=== PATIENT | female | born 1950 | race Caucasian/White ===

== ENCOUNTER 2018-08-26 12:39 | Outpatient (REF) | payer OTHER, SELFPAY | END 2018-08-26 12:59 | LOC: NCHCN 12:39 | PROVIDERS: PCP Family Medicine; Visit Provider Family Medicine | DX: L65.9 Nonscarring hair loss, unspecified (principal) | CPT/HCPCS: 84443 ==

== ENCOUNTER 2018-09-16 00:56 | Outpatient (CLI) | payer OTHER, SELFPAY ==
--- NOTE | 2018-09-16 10:24 | DI.MAMMO_ITS ---
SYMPTOMS/DIAGNOSIS: SCREENING, Z12.31 MAMMOGRAM: Mammograms were interpreted according to the usual protocol including computer analysis with CAD system, tomosynthesis and C view imaging. Comparison is made with exams from 2013 through 2017. The breasts are composed of scattered fibroglandular densities, breast density Category B. No suspicious masses or suspicious microcalcifications are seen. There has been no significant change. IMPRESSION: Category I B, negative mammogram. Yearly screening mammography is recommended. [facility] ASSESSMENT OF FINDINGS: Negative. Category 1. Patient will receive a letter notifying them of these results. BI-RADS category B. There are scattered areas of fibroglandular density.
== END 2018-09-16 01:16 ==
PROVIDERS: PCP Family Medicine; Visit Provider Family Medicine
DX: Z12.31 Encounter for screening mammogram for malignant neoplasm of breast (principal)
CPT/HCPCS: 77063; 77067

== ENCOUNTER 2019-12-18 10:41 | Outpatient (CLI) | payer OTHER, SELFPAY ==
[2019-12-19 18:53] LABS: COVID-19 RT-PCR UVMMC Result Negative (Negative)
== END 2019-12-18 11:01 ==
PROVIDERS: PCP Family Medicine; Visit Provider Family Medicine
DX: Z11.59 Encounter for screening for other viral diseases (principal)
CPT/HCPCS: U0003

== ENCOUNTER 2020-04-23 09:53 | Outpatient (REF) | payer OTHER, SELFPAY ==
[2020-04-23 19:33] LABS: HCT 42.5 % (36.0-46.0); HGB 14.6 g/dL (11.2-15.7); MCH 29.7 pg (27.0-33.0); MCHC 34.4 % (32.0-36.0); MCV 86.6 fL (80-95); Platelet Count 345 10^3/uL (130-400); RBC 4.91 10^6/uL (3.93-5.22); RDW 12.4 % (11.7-14.6); RDW-SD 39.1 fL; WBC 8.64 10^3/uL (4.4-10.8)
[2020-04-23 20:05] LABS: ALT 26 U/L (14-59); AST 21 U/L (15-37); Alkaline Phosphatase 101 U/L (46-116); Anion Gap 8.8 mmol/L (3-11); BUN 17 mg/dL (7-18); Bilirubin, Total 0.4 mg/dL (0.2-1.0); CO2 28.2 mmol/L (21.0-32.0); CREATININE 0.86 mg/dL (0.55-1.02); Calcium 9.6 mg/dL (8.5-10.1); Calculated LDL 151 mg/dL (<100); Chloride 97 mmol/L (98-107); Cholesterol 243 mg/dL (<200); Glucose 102 mg/dL (74-106); HDL Cholesterol 45 mg/dL (40-60); Potassium 3.8 mmol/L (3.5-5.1); Sodium 134 mmol/L (136-145); Total Protein 7.3 g/dL (6.4-8.2); Triglyceride 235 mg/dL (<150)
[2020-04-23 20:42] LABS: Hemoglobin A1C 5.8 % (<5.7)
== END 2020-04-23 10:13 ==
LOC: NCHCN 09:53
PROVIDERS: PCP Family Medicine; Visit Provider Family Medicine
DX: R73.03 Prediabetes (principal); E78.5 Hyperlipidemia, unspecified; I10 Essential (primary) hypertension
CPT/HCPCS: 80053; 80061; 85027; 83036

== ENCOUNTER 2020-06-09 02:44 | Outpatient (CLI) | payer OTHER, SELFPAY ==
--- NOTE | 2020-06-09 | DI.DEXA_ITS ---
EXAM: XR DEXA BONE DENSITY W/WO LILLY CLINICAL HISTORY: SCREENING FOR OSTEOPOROSIS IN POSTMENOPAUSAL WOMAN,Z78.0 TECHNIQUE: COMPARISON: CR LUMBAR SPINE COMPLETE from 08/17/2014 FINDINGS: DEXA scan was performed according to the usual protocol. Please see the accompanying data sheets. Findings for left hip scanning are T-score -0.9 with left femoral neck T-score -1.6. Findings for lumbar spine scanning are T-score -1.8. Findings for right forearm scanning are T-score -1.0. IMPRESSION: Findings consistent with osteopenia according to the WHO criteria. Please note that the lateral vert ebral scanogram shows no evidence of a vertebral compression fracture. RADIATION DOSE DELIVERED: Total DLP
== END 2020-06-09 03:04 ==
PROVIDERS: PCP Family Medicine; Visit Provider Family Medicine
DX: Z78.0 Asymptomatic menopausal state (principal); M85.89 Other specified disorders of bone density and structure, multiple sites
CPT/HCPCS: 77080

== ENCOUNTER 2020-11-16 02:09 | Outpatient (CLI) | payer MEDICARE, SELFPAY ==
--- NOTE | 2020-11-16 11:16 | DI.MAMMO_ITS ---
EXAM: MAMMO SCREENING CLINICAL HISTORY: SCREENING,Z12.31 TECHNIQUE: Mammograms were interpreted according to the usual protocol including computer analysis w [employer] CAD system, tomosynthesis and C-view imaging. COMPARISON: FINDINGS: The breasts are of moderate density with fairly symmetrical distribution of fibroglandular tissue. N o dominant mass is identified in either breast. The current examination is compared with previous ex aminations including September 2018 and there has been no gross interval change in appearance in tone rison with the prior studies. IMPRESSION: No specific evidence of malignancy at this time. Routine screening examinations are suggested at ye eduardo intervals in this age group according to the ACS ACR guidelines. BI-RADS Category 1 - Negative Breast Density - Category B - Scattered areas of fibroglandular density
== END 2020-11-16 02:29 ==
PROVIDERS: PCP Family Medicine; Visit Provider Family Medicine
DX: Z12.31 Encounter for screening mammogram for malignant neoplasm of breast (principal)
CPT/HCPCS: 77063; 77067

== ENCOUNTER → 2021-12-28 01:36 | Outpatient (CLI) | payer MEDICARE, SELFPAY ==
--- NOTE | 2021-12-28 12:55 | DI.MRI_ITS ---
Exam(s) MR LUMBAR SPINE WO EXAM: MR LUMBAR SPINE WO CLINICAL HISTORY: LOW BACK PAIN, CHRONIC, M54.5. TECHNIQUE: Multiplanar multisequence MRI of the Lumbar spine was performed. COMPARISON: CR LUMBAR SPINE COMPLETE from 08/17/2014 CR XR DEXA BONE DENSITY W/WO LILLY from 06/09/2020 FINDINGS: Plain films of 08/17/2014 were reviewed Conus medullaris is at normal level. There is no evidence of conus mass nor subjacent clumping of in trathecal nerve roots to suggest arachnoiditis. The distal thecal sac appears unremarkable.There are few tiny Tarlov intra sacral cysts at the S2-3 level. Bones:There are no fractures nor ominous osseous lesions in the lumbar vertebral bodies and visualize d sacrum. There are Modic type 1 sub endplate marrow edema changes on the anterosuperior aspect of L 2 vertebral body. With respect to the individual levels... T12-L1: Unremarkable L1-2: Normal disc height and signal. There is anterior osseous lipping evident at this level as well as some Modic type 1 sub endplate marrow edema on the anterior 0 superior aspect of L2 vertebral body . No erosions seen at this level. Posteriorly there is no evidence of loss of the normal posterior concave configuration of the disc. No disc herniation or spinal canal stenosis nor foraminal stenosi s at this level and there is no significant facet arthropathy.No foraminal stenosis L2-3: There is mild-moderate disc height loss at this level, there is no disc herniation nor central canal stenosis. No significant foraminal stenosis. No facet arthropathy. L3-4: Mild disc height loss. There is a small right-sided disc bulge in the floor of the exiting rig ht neural foramen. This does not contact the exiting nerve root at this level. There is no central canal stenosis no prominent foraminal stenosis at this level.No significant facet arthropathy nor lig amentum flavum hypertrophy. L4-5: There is advanced disc space narrowing on the right side of this disc space, with relative pres ervation of disc height on the left side of the disc space at this level. Lateral right osteophytes are noted. No osteophytes on the left side. Posteriorly there is no evidence of disc herniation or central canal stenosis. Exiting left neural foramen is nicely patent. There is mild vertical forami nal stenosis on the right side due to the disc height loss on this side, but this narrowing is mild a nd does not appear to be compressing the exiting nerve root. L5-S1: This level exhibits disc height loss on the left side, more so than the right side. There is mild annular bulging without a prominent disc herniation and there is no central canal stenosis. Exi ting right neural foramen is widely patent. There is mild vertical foraminal stenosis on the opposit e-left side due to the disc height loss at this level and mild posterior bony ridging in the floor of the exiting neural foramen. There are mild-moderate degenerative changes in the left facet joint at this level. Right facet joint appears unremarkable. Soft tissues: paraspinal soft tissues appear unremarkable. IMPRESSION: 1. There is no prominent disc herniation or central canal stenosis. However, there is mild multileve l asymmetric foraminal stenosis at L4-5 and L5-S1 levels, as described above. 2. Minimal facet joint degenerative changes. No prominent facet arthropathy. There is moderate dege nerative change in the left facet joint at L5-S1 level. Other facet joints appear unremarkable. The re is also no evidence of significant ligamentum flavum hypertrophy. 3. DATA REPOSITORY:
== END ==
PROVIDERS: PCP Family Medicine; Visit Provider Family Medicine
DX: M48.07 Spinal stenosis, lumbosacral region (principal); M47.817 Spondylosis without myelopathy or radiculopathy, lumbosacral region
CPT/HCPCS: 72148

== ENCOUNTER → 2022-01-05 02:35 | Outpatient (CLI) | payer MEDICARE, SELFPAY ==
--- NOTE | 2022-01-05 14:00 | DI.CT_ITS ---
Exam(s) CT CHEST WO EXAM: CT CHEST WO CLINICAL HISTORY: COPD, J44.9. TECHNIQUE: Imaging protocol: Axial computed tomography images were obtained and coronal and sagittal reformatted images were created and reviewed. COMPARISON: CR CHEST 2 VIEWS PA,LAT from 01/08/2014 FINDINGS: The examination is limited due to patient motion artifact. Tracheobronchial tree: Patent where visualized. Pulmonary parenchyma: No consolidation or dominant measurable mass. Wanx-mi-iydkapxs centrilobular em physema is present. Mediastinum and Sailaja: No dominant adenopathy or fluid collection. The esophagus is unremarkable. Thyroid gland: Unremarkable. Pleura: No effusion or pneumothorax. Heart: The heart is not dilated. Mild coronary artery calcification. No pericardial effusion. Aorta: Thoracic aorta non-dilated. Atherosclerosis is present. Upper abdomen: Status post cholecystectomy. Lymph nodes: Within normal limits. Soft tissues: Unremarkable. Bones:Within normal limits for the patient's age. IMPRESSION: Umvq-xt-vbjfjvpi centrilobular emphysema. RADIATION DOSE DELIVERED: 580.09mGy.cm Total DLP 580.09mGy.cm Total DLP DATA REPOSITORY: All CT scans at this facility are submitted to the National Radiology Data Registry (NRDR) Dose Index Registry (DIR) with the [employer] (ACR). RADIATION OPTIMIZATION: All CT scans at this facility use at least one of these dose optimization te chniques: automated exposure control; mA and/or kV adjustment per patient size (includes targeted exa ms where dose is matched to clinical indication); or iterative reconstruction.
== END ==
PROVIDERS: PCP Family Medicine; Visit Provider Family Medicine
DX: J44.9 Chronic obstructive pulmonary disease, unspecified (principal)
CPT/HCPCS: 71250

== ENCOUNTER 2022-06-12 15:09 | Outpatient (REF) | payer MEDICARE, SELFPAY ==
[2022-06-12 20:02] LABS: Anion Gap 8.4 mmol/L (3-11); BUN 11 mg/dL (7-18); CO2 27.6 mmol/L (21.0-32.0); CREATININE 0.8 mg/dL (0.55-1.02); Calcium 9.2 mg/dL (8.5-10.1); Chloride 99 mmol/L (98-107); Estimated GFR 79.22 (mL/min/1.73m2); Glucose 100 mg/dL (74-106); Potassium 3.5 mmol/L (3.5-5.1); Sodium 135 mmol/L (136-145)
== END 2022-06-12 15:10 | disposition home or self-care (01) ==
LOC: NCHCN 15:09
PROVIDERS: PCP Family Medicine; Visit Provider Internal Medicine
DX: I10 Essential (primary) hypertension (principal)
CPT/HCPCS: 80048

== ENCOUNTER 2022-09-30 11:34 | Outpatient (CLI) | payer MEDICARE, SELFPAY ==
--- NOTE | 2022-09-30 12:00 | DI.RAD_ITS ---
Exam(s) XR CHEST 2V PA LATERAL EXAM: XR CHEST 2V PA LATERAL CLINICAL HISTORY: evaluate pathology TECHNIQUE: 2D digital imaging was performed. COMPARISON: CR CHEST 2 VIEWS PA,LAT from 01/08/2014 CR XR DEXA BONE DENSITY W/WO LILLY from 06/09/2020 FINDINGS: HEART: Normal size. Aorta: Not dilated. PULMONARY VASCULATURE: Normal. LUNGS: Mild emphysematous and fibrotic changes. No focal infiltrates or pulmonary edema. PLEURAL SPACE: No pleural effusion or pneumothorax. BONE:Unremarkable for age. IMPRESSION: No acute abnormality. DATA REPOSITORY: RADIATION DOSE DELIVERED:
--- NOTE | 2022-09-30 12:17 | DI.VRAD_ITS ---
PROCEDURE INFORMATION: Exam: XR Chest Exam date and time: 09/30/2022 12:09 PM Age: 72 years old Clinical indication: Shortness of breath; Additional info: [place] pathology TECHNIQUE: Imaging protocol: Radiologic exam of the chest. Views: 2 views. COMPARISON: CT CHEST WO 01/05/2022 1:53 PM FINDINGS: Lungs: Unremarkable. No consolidation. Pleural spaces: Unremarkable. No pleural effusion. No pneumothorax. Heart/Mediastinum: Unremarkable. No cardiomegaly. Bones/joints: Unremarkable. IMPRESSION: No acute findings. Dictated and Authenticated by: Fidel Dash MD. Ordering:THAD Weathers MD
== END 2022-09-30 11:54 ==
PROVIDERS: PCP Family Medicine; Visit Provider Nurse Practitioner Family
DX: J44.9 Chronic obstructive pulmonary disease, unspecified (principal); R06.02 Shortness of breath
CPT/HCPCS: 71046

== ENCOUNTER 2023-01-11 02:27 | Outpatient (CLI) | payer MEDICARE, SELFPAY ==
--- NOTE | 2023-01-11 10:45 | DI.MAMMO_ITS ---
Exam(s) MAMMO SCREENING EXAM: MAMMO SCREENING CLINICAL HISTORY: screening. TECHNIQUE: Bilateral full field digital CC and MLO mammographic images were obtained with 3D tomosyn thesis and utilizing computer aided detection (CAD). COMPARISON: Prior mammograms were reviewed. FINDINGS: There has been no significant change in the appearance and distribution of the fibroglandular tissue. Asymmetric tissue in the right breast is unchanged from prior studies. There are no new spiculated masses nor malignant appearing microcalcification groups. There is no significant architectural distortion nor skin thickening-retraction. IMPRESSION: No radiographic evidence of malignancy. BI-RADS Category 1 - Negative Breast Density - Category B - Scattered areas of fibroglandular density Breast density Category C or D implies that the patient has dense breast tissue. Dense breast tissue can make it harder to find cancer on a mammogram. Dense breast tissue is also associated with an incr eased risk of breast cancer. This information about the result of the mammogram report was provided to the patient to raise their awareness. Use this report when you speak with the patient about their risks for breast cancer, which includes their family history. At that time, you may recommend additional screening tests (Ultrasoun d or MRI) as these tests may add significant information. A negative radiographic report should not delay biopsy if a dominant or clinically suspicious mass is present. Up to ten percent of cancers are not identified on mammography. A negative report may reinforce clinical impression. Adenosis and dense breasts may obscure an underlying neoplasm. False positive reports average 6 to 10%. Patient will receive a letter notifying them of these results.
== END 2023-01-11 02:47 ==
LOC: DI 02:27
PROVIDERS: PCP Family Medicine; Visit Provider Obstetrics & Gynecology
DX: Z12.31 Encounter for screening mammogram for malignant neoplasm of breast (principal)
CPT/HCPCS: 77063; 77067

== ENCOUNTER → 2023-04-11 01:11 | Outpatient (CLI) | payer MEDICARE, SELFPAY ==
--- NOTE | 2023-04-11 07:15 | DI.RAD_ITS ---
Exam(s) RF BARIUM SWALLOW EXAM: RF BARIUM SWALLOW CLINICAL HISTORY: CP level dysphagia, PHARYNGOESOPHAGEAL DYSPHAGIA, GLOBUS TECHNIQUE: 2D and realtime digital imaging was performed. CONTRAST MATERIAL: Thick and thin barium and barium tablet were administered. After Avastin crystal s and barium tablet also administered. COMPARISON: CR,XR XR CHEST 2V PA LATERAL from 09/30/2022 FINDINGS: The PA and lateral chest films show normal heart size and clear lung brewer. The lateral manager android view of the neck is unremarkable. Esophagus: The patient swallowed barium without difficulty. Noevidence for mucosal erosions. Nofold thickening. No mass is visible. Slight narrowing at GE junction. The barium tablet stuck briefly at this location. Motility: There is a normal primary stripping wave. Mild tertiary contractions were noted. There is a tiny sliding hiatal hernia. Nogastroesophageal reflux was observed during the exam. IMPRESSION: Tiny sliding hiatal hernia. Slight narrowing at GE junction. RADIATION DOSE DELIVERED: Gopir=12.4 mGy
[2023-04-11] MEDS: Barium Sulfate 700 MG TAB PO (09:19)
[2023-04-11] MEDS: Barium Sulfate 98% W/W 140 ML BTL PO (09:20)
[2023-04-11] MEDS: Barium Sulfate 60% W/V 355 ML BTL PO (09:20)
[2023-04-11] MEDS: Simethicone/Sod Bicarb/Cit Ac, 4 gram PACKET 1 PACKET PO (09:22)
== END ==
PROVIDERS: PCP Family Medicine; Visit Provider Otolaryngology
DX: K44.9 Diaphragmatic hernia without obstruction or gangrene; R13.14 Dysphagia, pharyngoesophageal phase
CPT/HCPCS: 74221; J3490

== ENCOUNTER 2023-09-11 02:36 | Outpatient (CLI) | payer MEDICARE, SELFPAY ==
[2023-09-11 12:40] LABS: Anion Gap 10.9 mmol/L (3-11); BUN 7 mg/dL (7-18); CO2 27.1 mmol/L (21.0-32.0); CREATININE 0.8 mg/dL (0.55-1.02); Calcium 9.6 mg/dL (8.5-10.1); Chloride 97 mmol/L (98-107); Estimated GFR 78.24 (mL/min/1.73m2); Glucose 112 mg/dL (74-106); Potassium 3.4 mmol/L (3.5-5.1); Sodium 135 mmol/L (136-145); TSH (W/Ref FT4) 1.86 uIU/mL (0.36-3.74)
[2023-09-11 12:52] LABS: Hemoglobin A1C 5.9 % (<5.7)
== END 2023-09-11 02:37 | disposition home or self-care (01) ==
LOC: LOS 02:36
PROVIDERS: PCP Family Medicine; Visit Provider Family Medicine
DX: E03.9 Hypothyroidism, unspecified (principal); E11.51 Type 2 diabetes mellitus with diabetic peripheral angiopathy without gangrene; E87.1 Hypo-osmolality and hyponatremia
CPT/HCPCS: 36415; 80048; 83036; 84443

== ENCOUNTER → 2023-09-25 14:56 | Outpatient (CLI) | payer MEDICARE, SELFPAY ==
--- NOTE | 2023-09-25 14:15 | DI.RAD_ITS ---
Exam(s) XR CHEST 2V PA LATERAL EXAM: XR CHEST 2V PA LATERAL CLINICAL HISTORY: evaluate pathology,chronic cough, r05.3 TECHNIQUE: 2D digital imaging was performed of the chest. Two images were obtained. PA and lateral views were obtained. COMPARISON: CT CT CHEST WO from 01/05/2022 CR,XR XR CHEST 2V PA LATERAL from 09/30/2022 CR,RF RF BARIUM SWALLOW from 04/11/2023 FINDINGS: MEDIASTINUM: Normal. HEART: Normal. PULMONARY VASCULATURE: Normal. LUNGS: There are diffuse interstitial infiltrates seen in the lungs which have progressed since the p rior examination. No focal consolidating infiltrate is seen. PLEURAL SPACE: No pleural effusion or pneumothorax. BONE:Within normal limits for the patient's age. OTHER FINDINGS:Normal. IMPRESSION: Diffuse interstitial disease. Differential considerations include acute interstitial pneumonia or ed rodrick. Chronic interstitial fibrosis should also be considered. A 1 month follow-up examination to as sess for improvement is recommended. If the findings persist in this patient, a high-resolution CT s can in addition to the routine noncontrast CT scan is recommended. DATA REPOSITORY: RADIATION DOSE DELIVERED:
== END ==
PROVIDERS: PCP Family Medicine; Visit Provider Nurse Practitioner Family
DX: J84.9 Interstitial pulmonary disease, unspecified
CPT/HCPCS: 71046

== ENCOUNTER 2023-09-26 10:31 | Outpatient (CLI) | payer MEDICARE, SELFPAY ==
[2023-09-26 12:23] LABS: Abs Immature Grans 0.05 10^3/uL (0.0-0.06); Absolute Basophil Count 0.04 10^3/uL (0.0-0.2); Absolute Eosinophil Count 0.01 10^3/uL (0.0-0.7); Absolute Lymphocyte Count 0.83 10^3/uL (1.2-3.4); Absolute Monocyte Count 0.13 10^3/uL (0.1-0.8); Absolute Neutrophil Count 7.11 10^3/uL (1.2-6.7); Basophils % 0.5; Eosinophils % 0.1; HCT 41.6 % (36.0-46.0); HGB 13.9 g/dL (11.2-15.7); Immature Grans % 0.6; Lymphocytes % 10.2; MCH 27.4 pg (27.0-33.0); MCHC 33.4 % (32.0-36.0); MCV 82 fL (80-95); MPV 8.8 fL (8.0-11.0); Monocytes % 1.6; Platelet Count 472 10^3/uL (130-400); RBC 5.08 10^6/uL (3.93-5.22); RDW 12.7 % (11.7-14.6); WBC 8.17 10^3/uL (4.4-10.8)
[2023-09-26 12:46] LABS: NT-proBNP 174 pg/mL (<300)
== END 2023-09-26 10:32 | disposition home or self-care (01) ==
LOC: LOS 10:32
PROVIDERS: Nurse Practitioner Family; PCP Family Medicine; Visit Provider Family Medicine
DX: J44.9 Chronic obstructive pulmonary disease, unspecified (principal); I50.9 Heart failure, unspecified
CPT/HCPCS: 36415; 83880; 85025

== ENCOUNTER → 2023-10-09 02:54 | Outpatient (CLI) | payer MEDICARE, SELFPAY ==
--- NOTE | 2023-10-09 15:00 | DI.CT_ITS ---
Exam(s) CT CHEST WO EXAM: CT CHEST WO CLINICAL HISTORY: interstitial changes seen on CXR,chronic obstructive lung disease,j44.9 TECHNIQUE: Imaging Protocol: Axial computed tomography images with coronal and sagittal reformatted images were created and reviewed CONTRAST MATERIAL: Noncontrast COMPARISON: CT CT CHEST WO from 01/05/2022 CR,RF RF BARIUM SWALLOW from 04/11/2023 CR XR CHEST 2V PA LATERAL from 09/25/2023 FINDINGS: Exam mildly limited by motion. Pulmonary parenchyma: Mild emphysematous changes at the apices. Mildly increased interstitial change s greater in the upper lobes. Arm some peribronchial thickening and peribronchial infiltrates greate r in the upper lobes. No consolidation. No dominant measurable mass. Tracheobronchial tree: No bronchiectasis or mucous plugging. Mediastinum and Sailaja: No dominant adenopathy or fluid collection. Pleura: No effusion. No pneumothorax. Heart: The heart is not dilated. Mild coronary artery calcifications are seen. Aorta: Thoracic aorta non-dilated. Mild to moderate atherosclerotic changes. Upper abdomen: No acute findings.. Status post cholecystectomy. Bones: Degenerative changes in the spine. Soft tissues: Unremarkable. IMPRESSION: Bilateral infiltrates superimposed on mild emphysematous and fibrotic changes. RADIATION DOSE DELIVERED: 532.06mGy.cm Total DLP DATA REPOSITORY: All CT scans at this facility are submitted to the National Radiology Data Registry (NRDR) Dose Index Registry (DIR) with the [employer] (ACR). RADIATION OPTIMIZATION: All CT scans at this facility use at least one of these dose optimization te chniques: automated exposure control; mA and/or kV adjustment per patient size (includes targeted exa ms where dose is matched to clinical indication); or iterative reconstruction.
== END ==
PROVIDERS: PCP Family Medicine; Visit Provider Family Medicine
DX: J44.9 Chronic obstructive pulmonary disease, unspecified (principal); J98.4 Other disorders of lung; J43.8 Other emphysema
CPT/HCPCS: 71250

== ENCOUNTER 2023-10-18 09:16 | Outpatient (CLI) | payer MEDICARE, SELFPAY ==
[2023-10-18] MEDS: Levalbuterol HFA 15 GM INH 4 PUFF IH (15:50)
[2023-10-18] MEDS: Inhaler, Assist Device 1 EACH MC (15:51)
--- NOTE | 2023-10-19 12:39 | W.PFT ---
Date of service: 10/18/23 Time of Service: 14:38 Pulmonary Function Test Result Indications: COPD Interpretation Spirometry: There is no airflow limitation. There is no bronchodilator response. Lung Volumes: Normal lung volumes Diffusion Capacity: Decreased diffusion Airway Pressure: Increased airways resistance Impression Isolated decreased diffusion. This could represent emphysema, ILD or pulmonary vascular disease. Clinical Correlation therefore is recommended.
== END 2023-10-18 09:17 | disposition home or self-care (01) ==
LOC: RT 09:16
PROVIDERS: PCP Family Medicine; Visit Provider Family Medicine
DX: J44.9 Chronic obstructive pulmonary disease, unspecified (principal)
CPT/HCPCS: 94060; 94726; 94729

== ENCOUNTER → 2023-10-31 09:27 | Outpatient (BNVA) | payer MEDICARE, SELFPAY | PROVIDERS: PCP Family Medicine; Referring Provider Family Medicine; Visit Provider Physician Assistant Surgical | DX: R05.9 Cough, unspecified (principal); J44.9 Chronic obstructive pulmonary disease, unspecified; J84.9 Interstitial pulmonary disease, unspecified; F17.200 Nicotine dependence, unspecified, uncomplicated | CPT/HCPCS: 36415; 99205 ==

== ENCOUNTER 2023-10-31 11:04 | Outpatient (REF) | payer MEDICARE, SELFPAY ==
[2023-10-31 12:42] LABS: Abs Immature Grans 0.03 10^3/uL (0.0-0.06); Absolute Basophil Count 0.04 10^3/uL (0.0-0.2); Absolute Eosinophil Count 0.03 10^3/uL (0.0-0.7); Absolute Lymphocyte Count 1.83 10^3/uL (1.2-3.4); Absolute Monocyte Count 0.67 10^3/uL (0.1-0.8); Absolute Neutrophil Count 5.66 10^3/uL (1.2-6.7); Basophils % 0.5; Eosinophils % 0.4; HCT 43.1 % (36.0-46.0); HGB 14.4 g/dL (11.2-15.7); Immature Grans % 0.4; Lymphocytes % 22.2; MCH 27.9 pg (27.0-33.0); MCHC 33.4 % (32.0-36.0); MCV 83 fL (80-95); MPV 9.4 fL (8.0-11.0); Monocytes % 8.1; Neutrophils % 68.4; Platelet Count 412 10^3/uL (130-400); RBC 5.17 10^6/uL (3.93-5.22); RDW 13.7 % (11.7-14.6); WBC 8.26 10^3/uL (4.4-10.8)
[2023-10-31 23:39] LABS: IgE 4 IU/mL (<158)
[2023-11-07 08:56] LABS: Alter tenuis/alternata IgG <2.0 mcg/mL (<12.0); Aureobasidium pullulans IgG 2.1 mcg/mL (<18.0); Laceyella sacchari IgG 28.8 mcg/mL (<25.0); Micropolyspora faeni IgG <2.0 mcg/mL (<5.0); Penicillium Chrysogenum IgG 42.6 mcg/mL (<22.0); Phoma betae IgG 4.1 mcg/mL (<8.0)
== END 2023-10-31 11:05 | disposition home or self-care (01) ==
LOC: LBN 11:04
PROVIDERS: PCP Family Medicine; Visit Provider Physician Assistant Surgical
DX: J84.9 Interstitial pulmonary disease, unspecified
CPT/HCPCS: 86001; 87305; 82785; 85025

== ENCOUNTER → 2023-11-30 08:42 | Outpatient (BNVA) | payer MEDICARE, SELFPAY | PROVIDERS: PCP Family Medicine; Referring Provider Family Medicine; Visit Provider Student in an Organized Health Care Education/Training Program | DX: J43.9 Emphysema, unspecified (principal); J67.9 Hypersensitivity pneumonitis due to unspecified organic dust; K21.9 Gastro-esophageal reflux disease without esophagitis; F17.200 Nicotine dependence, unspecified, uncomplicated | CPT/HCPCS: 99214 ==

== ENCOUNTER → 2024-02-07 00:44 | Outpatient (CLI) | payer MEDICARE, SELFPAY ==
--- NOTE | 2024-02-07 15:09 | DI.CT_ITS ---
Exam(s) CT CHEST WO EXAM: CT CHEST WO CLINICAL HISTORY: assess resolution/stability,MULTIPLE PULMONARY NODULES,HYPERSENSITIVITY. TECHNIQUE: Imaging protocol: Axial computed tomography images were obtained and coronal and sagittal reformatted images were created and reviewed. COMPARISON: CT CT CHEST WO from 01/05/[address] CHEST WO from 10/09/2023 FINDINGS: The examination is limited due to patient motion artifact. Tracheobronchial tree: Patent where visualized. Pulmonary parenchyma: Moderate centrilobular emphysematous changes are present. No focal consolidati on is seen. No pulmonary nodules are present. There is persistent mild interstitial thickening pred ominantly in the lung apices which appears stable. Mediastinum and Sailaja: No dominant adenopathy or fluid collection. The esophagus is unremarkable. Thyroid gland: Unremarkable. Pleura: No effusion or pneumothorax. Heart: The heart is not dilated. Coronary artery calcifications are present. No pericardial effusion . Aorta: Thoracic aorta non-dilated. Atherosclerotic calcification is present. Upper abdomen: Unremarkable. Lymph nodes: Within normal limits. Soft tissues: Unremarkable. Bones:Within normal limits for the patient's age. IMPRESSION: 1. No new infiltrates are seen in the lungs. 2. Moderate centrilobular emphysema. Stable predominantly upper lobe interstitial thickening. RADIATION DOSE DELIVERED: 494.63mGy.cm Total DLP 494.63mGy.cm Total DLP DATA REPOSITORY: All CT scans at this facility are submitted to the National Radiology Data Registry (NRDR) Dose Index Registry (DIR) with the [employer] (ACR). RADIATION OPTIMIZATION: All CT scans at this facility use at least one of these dose optimization te chniques: automated exposure control; mA and/or kV adjustment per patient size (includes targeted exa ms where dose is matched to clinical indication); or iterative reconstruction.
== END ==
PROVIDERS: PCP Family Medicine; Visit Provider Student in an Organized Health Care Education/Training Program
DX: R91.8 Other nonspecific abnormal finding of lung field (principal); J67.9 Hypersensitivity pneumonitis due to unspecified organic dust
CPT/HCPCS: 71250

== ENCOUNTER → 2024-02-11 09:18 | Outpatient (BNVA) | payer MEDICARE, SELFPAY | PROVIDERS: PCP Family Medicine; Referring Provider Family Medicine; Visit Provider Physician Assistant Surgical | DX: J43.9 Emphysema, unspecified (principal); K21.9 Gastro-esophageal reflux disease without esophagitis; F17.200 Nicotine dependence, unspecified, uncomplicated; J67.9 Hypersensitivity pneumonitis due to unspecified organic dust | CPT/HCPCS: 99214 ==

== ENCOUNTER 2024-02-27 03:58 | Outpatient (CLI) | payer MEDICARE, SELFPAY ==
[2024-02-27 12:36] LABS: Hemoglobin A1C 6.3 % (<5.7)
[2024-02-27 12:37] LABS: BUN 14 mg/dL (7-18); CREATININE 0.9 mg/dL (0.55-1.02); Calcium 9.3 mg/dL (8.5-10.1); Chloride 99 mmol/L (98-107); Estimated GFR 67.92 (mL/min/1.73m2); Glucose 101 mg/dL (74-106); NT-proBNP 100 pg/mL (<300); Potassium 3.6 mmol/L (3.5-5.1); Sodium 133 mmol/L (136-145)
== END 2024-02-27 03:59 | disposition home or self-care (01) ==
LOC: LOS 03:58
PROVIDERS: PCP Family Medicine; Visit Provider Family Medicine
DX: R06.09 Other forms of dyspnea (principal); E11.51 Type 2 diabetes mellitus with diabetic peripheral angiopathy without gangrene; I70.209 Unspecified atherosclerosis of native arteries of extremities, unspecified extremity; E87.1 Hypo-osmolality and hyponatremia
CPT/HCPCS: 36415; 80048; 83036; 83880

== ENCOUNTER 2024-04-01 01:32 | Outpatient (CLI) | payer MEDICARE, SELFPAY ==
--- NOTE | 2024-04-01 07:45 | DI.RAD_ITS ---
Exam(s) XR LUMBAR SPINE COMPLETE EXAM: XR LUMBAR SPINE COMPLETE CLINICAL HISTORY: rt low back pain,m54.9. TECHNIQUE: 2D digital imaging was performed of the lumbar spine. Five images were obtained. AP, la teral, right oblique, left oblique and L5-S1 spot views were obtained. COMPARISON: CR LUMBAR SPINE COMPLETE from 08/17/2014 CR XR DEXA BONE DENSITY W/WO LILLY from 06/09/2020 FINDINGS: BONES: No fracture or destructive lesion. There are endplate osteophytes throughout the lumbar spine. There are degenerative changes seen at the facets at L4-5 and L5-S1. DISKS: There is disc space narrowing in the lumbar spine particularly at L4-5 and L5-S1. ALIGNMENT: Lumbar spinal alignment is within normal limits. No spondylolysis or spondylolisthesis. SOFT TISSUE: There are surgical clips again seen in the right upper quadrant. This may reflect prior cholecystectomy. Atherosclerotic calcification is seen of the abdominal aorta. IMPRESSION: Vdfu-by-tkwsnapa degenerative changes seen in the lumbar spine. DATA REPOSITORY: RADIATION DOSE DELIVERED:
--- NOTE | 2024-04-01 14:08 | DI.RAD_ITS ---
Exam(s) XR HIP RT COMPLETE AP PELVIS EXAM: XR HIP RT COMPLETE AP PELVIS CLINICAL HISTORY: rt groin pain, rt hip pain,m25.551. TECHNIQUE: 2D digital imaging was performed of the right hip. Three images were obtained. AP pelvis and lateral right hip views were obtained. COMPARISON: CR RT HIP COMPLETE AP PELVIS from 05/15/2017 FINDINGS: BONES: No acute fracture is present. No bony destructive lesion is seen. JOINTS: No dislocation present. There is moderate narrowing of the left hip joint and mild narrowing of the right hip joint. Mild degenerative changes are seen in the lower lumbar spine in the sacroili ac joints. The symphysis pubis is unremarkable. SOFT TISSUE: Normal. IMPRESSION: Mild joint space narrowing of the hips bilaterally, left greater than right. DATA REPOSITORY: RADIATION DOSE DELIVERED:
== END 2024-04-01 01:52 ==
LOC: DI 01:32
PROVIDERS: PCP Family Medicine; Visit Provider Family Medicine
DX: M25.551 Pain in right hip (principal); M54.9 Dorsalgia, unspecified
CPT/HCPCS: 72110; 73502

== ENCOUNTER 2024-04-17 02:21 | Outpatient (CLI) | payer MEDICARE, SELFPAY ==
--- NOTE | 2024-04-17 07:00 | DI.NM_ITS ---
APPROVED REPORT Exam: Pharmacologic Patient Location: Out-Patient Room/Bed: Stress Nurse: Samia Yan RN and Glynn Zamora RN Ordering Provider:KRISTINE ACE, Contact Number: [phone] BMI: 32.11 Baseline Rhythm: Sinus Rhythm. Indications: Chest Pain. Medical History Medical History: Hypertension; Current Smoker; Emphysema; GERD; Interstitial Lung Disease; PVD; Idiop athic Pulmonary Fibrosis; Hyperlipidemia; COPD; Obesity; Pre-diabetes mellitus; Low Back Pain. Cardiac Medications: Famotidine; HCTZ; Losartan; Albuterol Sulfate; Diltiazem. Allergies: Morphine; Simvastatin; Tetanus and Diptheria; Celexa; Penicillin V; Amlodipine; Atorvastat in; Rosuvastatin; Lisinopril; Pravastatin; Aspirin; Erthromycin base; Ibuprofen; Oxycodone. Cardiac Risk Factors: Family Hx; Hypertension; Hyperlipidemia; PVD; Pre-diabetes mellitus; COPD; Curr ent Smoker; Obesity. Previous Cardiac Procedures: None. Pretest Chest Pain Characteristics: None. Exercise History: Indeterminate. Physical Disabilities: Bilateral Leg Weakness. Lung Sounds: Expiratory wheezing noted bilaterally throughout, anterior and posterior. Heart Sounds: S1 and S2 auscultated. Stress Test Details Test: Pharmacologic stress testing performed using 0.4 mg of regadenoson per 5 mL given IV over 10 s econds. Reason for pharmacologic stress test: physical limitation. Nuclear Acquisition: Rest Tc-99m/Stress Tc-99m 1 day Rest Isotope: Tc-99m Sestamibi. Dose: 10.0 Date: 04/17/2024 Injection Time: 0920 Stress Isotope: Tc-99m Sestamibi. Dose: 30.0 Date: 04/17/2024 Injection Time: 1107 HR Resting HR Supine: 69 bpm Max Heart Rate (APMHR): 148 bpm Target HR (85% APMHR): 126 bpm Max HR Achieved: 90 bpm % of APMHR: 61 Recovery HR: 74 bpm BP Resting BP Supine: 164/72 mmHg Max BP: 164/76 mmHg Recovery BP: 160/52 mmHg ECG Resting ECG: Sinus Rhythm. Ectopy: None. Stress ECG: Sinus Rhythm. ST Change: Nondiagnostic low heart rate. Arrhythmia: None. Recovery ECG: Sinus Rhythm. Recovery ST Change: Nondiagnostic low heart rate. Recovery Arrhythmia: None. Clinical Stress Symptoms: Headache; Mild to moderate Shortness of Breath; Bilateral Upper and Lower Extremity Numbness; Bilateral Leg Heaviness. Angina Score: None Rate Pressure Product: 89950 Stress ECG Conclusion 1. Resting electrocardiogram was normal 2. Patient underwent testing using pharmacologic stress with regadenoson 3. Peak heart rate achieved was 61% of maximal predicted for age 4. Electrocardiographic portion of the test was nondiagnostic 5. See MPI report Stress Test Summary STAGE HR BP SpO2 Symptoms NOTES Supine 69 164/72 96 Pt. c/o of a headache, but states, It's just a caffeine headache. 1 min post Lexiscan injection 75 164/76 94 Pt. c/o a headache, mild to moderate shortness of breath , bilateral upper and lower extremity numbness, and bilateral leg heaviness. 3 min post Lexiscan injection 79 160/62 98 Pt. c/o headache, mild shortness of breath, mild bilater al upper and lower extremity numbness; and mild bilateral leg heaviness. 6 min post Lexiscan injection 74 160/52 96 Pt. c/o a headache, but states that all other symptoms h ave resolved. Pt. still c/o a headache, which she had prior to entering the Stress Lab, and which she states is caf feine related. Pt. conversing pleasantly with nursing staff upon leaving the Stress Lab. Pt. left amb ulatory in no apparent distress. MPI Conclusion Myocardial perfusion is normal. There is no ischemia or evidence of prior infarction Ejection fraction is 90% with hyperdynamic wall motion Radiologist Interpretation Radiologist Interpretation by: Gabo Fuller MD Interpretation Date/Time: 04/17/2024 15:56:47
[2024-04-17] MEDS: Regadenoson 0.4 MG/5 ML SYR IVP (11:07)
== END 2024-04-17 02:41 ==
LOC: DI 02:21
PROVIDERS: PCP Family Medicine; Visit Provider Family Medicine
DX: R07.9 Chest pain, unspecified (principal)
CPT/HCPCS: 78452; 93016; 93018; 93017; J2785

== ENCOUNTER → 2024-05-13 12:57 | Outpatient (BNVA) | payer MEDICARE, SELFPAY | PROVIDERS: PCP Family Medicine; Referring Provider Family Medicine; Visit Provider Physician Assistant Surgical | DX: J43.9 Emphysema, unspecified (principal); J67.9 Hypersensitivity pneumonitis due to unspecified organic dust; K21.9 Gastro-esophageal reflux disease without esophagitis; F17.200 Nicotine dependence, unspecified, uncomplicated | CPT/HCPCS: 99214 ==

== ENCOUNTER 2024-05-26 02:01 | Outpatient (CLI) | payer MEDICARE, SELFPAY ==
--- NOTE | 2024-05-26 13:30 | DI.US_ITS ---
APPROVED REPORT EXAM: Comprehensive 2D, Doppler, and color-flow Echocardiogram Patient Location: Out-Patient Human Resources Administrator: Isa Martinez RDCS (AE) Indications: Increasing SOB laying flat, Pulmonary HTN Other Information Study Quality: Adequate Conclusion Normal left ventricular wall thickness and chamber size. Ejection fraction is 57%. Wall motion is n ormal Normal right ventricular size and function Both atria are normal in size Aortic valve is mildly sclerotic and trileaflet without stenosis or regurgitation Normal mitral valve with trace to mild regurgitation Normal tricuspid valve with trace regurgitation. Right ventricular systolic pressure could not be es timated Wall motion Left Ventricle The left ventricle is normal size. The left ventricular systolic function is normal. The left ventric ular ejection fraction is within the normal range. There is normal left ventricular wall thickness. T here is normal LV segmental wall motion. There is no ventricular septal defect visualized. LVEF is 57 %. Right Ventricle The right ventricle is normal size. The right ventricular systolic function is normal. Atria The left atrium size is normal. The right atrium size is normal. The interatrial septum is intact wit h no evidence for an atrial septal defect. Aortic Valve The Aortic valve is mildly sclerotic. Aortic valve is trileaflet. There is no aortic valvular stenos is. No aortic regurgitation is present. Mitral Valve The mitral valve is normal in structure. No evidence of mitral valve stenosis. Trace to mild mitral r egurgitation. Tricuspid Valve The tricuspid valve is normal in structure. There is no tricuspid valve stenosis. Trace tricuspid reg urgitation. Unable to assess PA pressure. Pulmonic Valve The pulmonary valve is normal in structure. There is no pulmonic valvular stenosis. Trace pulmonic re gurgitation. Great Vessels The aortic root is normal in size. The ascending aorta is normal in size. Aortic arch is normal in ca liber. IVC is normal in size and collapses >50% with inspiration. Pericardium There is no pericardial effusion. 2D Dimensions IVSD d PLAX 0.84 cm F: 0.6-1.0 Ao Root d 2.52 cm F: 2.7 - 3.3 LVPW d PLAX 0.80 cm F: 0.6 - 1.0 Ao Asc Diam d 2.72 cm F: 2.3 - 3.1 LVID d PLAX 4.19 cm F: 3.8 - 5.2 LVDs 2.72 cm F: 2.2 - 3.5 LV EF Teichholz 64.8 % FS 35.09 % LV EDV (Teich) 78.1 mL LV ESV (Teich) 27.5 mL M-Mode TAPSE 2.06 cm (M/F) >1.7 Auto EF LV EDV A4C 73.0 mL LV EDV A2C 87.4 mL LV EDV BP 81.3 mL LV ESV A4C 31.1 mL LV ESV A2C 38.8 mL LV ESV BP 35.3 mL LVEF(%) A4C 57.4 % LVEF(%) A2C 55.6 % LVEF(%) BP 56.6 % LV SV A4C 41.8 ml LV SV A2C 48.6 ml LV SV BP 46.0 ml LV CO A4C 3.0 L/min LV CO A2C 3.3 L/min LV CO BP 3.2 L/min HR A4C 71.86 BPM HR A2C 68.32 BPM LV EDV Index (BP) LA Volume LA Length A4C 4.3 cm LA Length A2C 4.7 cm LA Area A4C s 12.92 cm2 LA Area A2C s 16.71 cm2 LA Vol A4C A-L 32.82 mL LA Vol A2C A-L 50.10 mL LA Vol Biplane A-L 42.4 mL LA Vol/BSA A4C A-L LA Vol/BSA A2C A-L LA Vol/BSA BP A-L 25.1 mL/m2 LA Vol A4C MOD 30.5 mL LA Vol A2C MOD 47.9 mL LA Vol BP MOD 39.9 mL RA Volume RA Area A4C 8.3 cm2 RA ESV A4C (A-L) 17.9mL RA Vol/BSA A4C A-L RA Length A4C 3.2 cm RA ESV A4C (MOD) 17.6mL LV Diastology MV E' medial 0.064 (>0.07 m/s) MV E Vmax 0.85 (0.4-1.3 m/s) MV E/E' MED 13.21 (<14) MV A Vmax 1.10 (0.4-1.3 m/s) MV E' lateral 0.064 (>0.1 m/s) E/A Ratio 0.8 MV E/E' LAT 13.21 (<14) MV E' Average 0.064 m/s MV E/E'(average) 13.21 Aortic Valve AoV Vmax 1.17 m/s LVOT Vmax 0.89 m/s AoV Peak Grad 5.5 mmHg LVOT Peak Grad 3.2 mmHg AoV Area (Vmax) 2.12 cm2 LVOT VTI 0.208 m AoV VTI 0.268 m LVOT Mean Grad 2.0 mmHg AoV Mean De. 0.76 m/s LVOT SV 57.99 mL AoV Mean Grad 2.6 mmHg LVOT Diam s 1.85 cm AoV Area (VTI) 2.16 cm2 AV Regurg Peak Gr. 5.46 mmHg Velocity Ratio 0.76 Mitral Valve MV DT 289 (160-240 msec) MV Vmax TIPS 1.02 m/s MV Mean Grad 2.0 (<2mmHg) MV VTI 0.278 m Pulmonary Valve PV Vmax 0.94 (0.5-1.5 m/s) RVOT Vmax 0.75 m/s PV Peak Grad 3.5 mmHg RVOT Peak Gr. 2.2 mmHg PV Mean De 0.64 m/s RVOT VTI 0.182 m PV Mean Grad 1.9 mmHg RVOT Mean Gr. 1.2 mmHg Tricuspid Valve TV S' 0.10 m/s
== END 2024-05-26 02:21 ==
LOC: DI 02:02
PROVIDERS: PCP Family Medicine; Visit Provider Physician Assistant Surgical
DX: I27.20 Pulmonary hypertension, unspecified (principal)
CPT/HCPCS: 93306

== ENCOUNTER 2024-05-30 02:26 | Outpatient (CLI) | payer MEDICARE, SELFPAY ==
[2024-05-30] MEDS: Albuterol HFA 18 GM 200 PUFF INH IH (14:37)
[2024-05-30] MEDS: Methacholine 100 MG VIAL IH (14:37)
[2024-05-30] MEDS: Inhaler, Assist Device 1 EACH MC (14:38)
--- NOTE | 2024-06-07 10:15 | W.PFT ---
Date of service: 05/30/24 Time of Service: 13:07 Pulmonary Function Test Result Indications: Emphysema Interpretation Spirometry: No baseline airflow limitation. There was a 20% decrease in FEV1 with administration of 1mg/mL methacholine Impression Positive methacholine challenge test Clinical Correlation therefore is recommended.
== END 2024-05-30 02:27 | disposition home or self-care (01) ==
LOC: RT 02:26
PROVIDERS: PCP Family Medicine; Visit Provider Student in an Organized Health Care Education/Training Program
DX: J43.9 Emphysema, unspecified (principal)
CPT/HCPCS: 94060; 94070; J7674

== ENCOUNTER 2024-05-30 17:47 | Outpatient (REF) | payer MEDICARE, SELFPAY ==
[2024-06-03 16:14] LABS: Urine Volume 2725 mL
== END 2024-05-30 17:48 | disposition home or self-care (01) ==
LOC: LBN 17:47
PROVIDERS: PCP Family Medicine; Visit Provider Family Medicine
DX: I10 Essential (primary) hypertension (principal)
CPT/HCPCS: 81050; 82384

== ENCOUNTER 2024-06-13 01:14 | Outpatient (CLI) | payer MEDICARE, SELFPAY ==
[2024-06-13 12:18] LABS: CREATININE 0.9 mg/dL (0.55-1.02); Estimated GFR 67.92 (mL/min/1.73m2)
[2024-06-13] MEDS: Omnipaque 350 MG/ML 100 ML BTL IJ (12:58)
--- NOTE | 2024-06-13 13:01 | DI.CT_ITS ---
Exam(s) CT ABDOMEN PELVIS CTA EXAM: CT ABDOMEN PELVIS CTA CLINICAL HISTORY: uncontrolled hypertension,? renal artery stenosis,i10. TECHNIQUE: Imaging Protocol: Axial CT angiography was performed with multi-slice acquisition and m ulti-planar and/or 3D reconstructions. CONTRAST MATERIAL: Intravenous: Omnipaque 350 Contrast volume:structured data in ml Oral: yes / no COMPARISON: US PELVIS TRANSVAG from 09/09/[address] CHEST WO from 02/07/2024 CR XR LUMBAR SPINE COMPLETE from 04/01/2024 CT,NM,TMT NM MPI REST STRESS GRP from 04/17/2024 FINDINGS: Vascular Structures: Celiac Coggon:No evidence of stenosis. SMA: No evidence of stenosis. Renal Arteries: No evidence of significant stenosis. There is a single renal artery perfusing each k idney. No vascular beading. Aorta: No aneurysm. No dissection. Severe calcification of the infrarenal abdominal aorta with mura l thrombus. Narrowing of the dimension of the distal abdominal aorta worst at the bifurcation. Iliac Arteries: Heavy calcification causing severe stenosis proximal right internal carotid artery a nd [id number] on the left. Multifocal calcifications along the right external iliac artery. Common Femoral Arteries: Focal calcifications causing mild to moderate stenosis on the right. Soft Tissues:Unremarkable. Lung bases:No acute findings. Liver: Normal size. Normal density. No measurable mass. Gallbladder and biliary tract: Status post cholecystectomy. No biliary dilation. Pancreas: Normal density, no abnormal calcifications or inflammatory process. Spleen: Normal. Kidneys: Normal size, contour and axis. No obstructive uropathy. No masses seen. No evidence of calcu li. Adrenal glands: No masses seen. Bladder: No gross wall thickening. No evidence of calculi. No evidence of mass. Bowel: No obstruction or bowel wall thickening. Sigmoid diverticulosis. No evidence of diverticuliti s. Appendix normal. Peritoneal cavity: No ascites. No focal collection. No mesenteric inflammatory response. Bones: No acute findings. Lymph nodes: Within normal limits. Reproductive: The uterus is unremarkable. There is a 4.5 centimeter maximal dimension left ovarian c yst. This also enlargement of the right ovary, measuring 3.6 by 3 cm. Pelvic ultrasound recommended for further evaluation. IMPRESSION: No evidence of renal artery stenosis. Severe at the both sclerotic changes of the abdominal aorta severe stenosis at the proximal right com mon iliac artery. An 4.5 centimeter left ovarian cyst as well as enlargement of the left ovary. Pelvic ultrasound is geetha mmended for further evaluation. Unexpected findings RADIATION DOSE DELIVERED: Total DLP DATA REPOSITORY: All CT scans at this facility are submitted to the National Radiology Data Registry (NRDR) Dose Index Registry (DIR) with the [employer] (ACR). RADIATION OPTIMIZATION: All CT scans at this facility use at least one of these dose optimization te chniques: automated exposure control; mA and/or kV adjustment per patient size (includes targeted exa ms where dose is matched to clinical indication); or iterative reconstruction.
== END 2024-06-13 01:34 ==
LOC: DI 01:14
PROVIDERS: PCP Family Medicine; Visit Provider Family Medicine
DX: I10 Essential (primary) hypertension (principal); N83.292 Other ovarian cyst, left side
CPT/HCPCS: 74174; 82565; J3490

== ENCOUNTER → 2024-06-16 13:32 | Outpatient (BNVA) | payer MEDICARE, SELFPAY | PROVIDERS: PCP Family Medicine; Referring Provider Family Medicine; Visit Provider Physician Assistant Surgical | DX: J43.9 Emphysema, unspecified (principal); J67.9 Hypersensitivity pneumonitis due to unspecified organic dust; K21.9 Gastro-esophageal reflux disease without esophagitis; F17.200 Nicotine dependence, unspecified, uncomplicated | CPT/HCPCS: 99214 ==

== ENCOUNTER 2024-06-30 01:35 | Outpatient (CLI) | payer MEDICARE, SELFPAY ==
--- NOTE | 2024-06-30 07:00 | DI.US_ITS ---
Exam(s) US PELVIS EXAM: US PELVIS CLINICAL HISTORY: assess left ovary (cyst and enlargement),f/u abnl ct,n83.202 TECHNIQUE: Transabdominal imaging was performed using standard protocol. The patient declined transvaginal imaging. COMPARISON: CT CT ABDOMEN PELVIS CTA from 06/13/2024 FINDINGS: The bladder is unremarkable. UTERUS: Anteverted. 6.5 x 2.0 x 3.4 cm Endometrium: 2 mm Myometrium: Unremarkable. Cervix: Unremarkable. OVARIES: Right: 4.4 x 2.1 x 4.1 cm. Cyst or mass: None. Left: Cyst or mass: 4.2 centimeter cyst. DOPPLER: Color: Symmetric and uniform flow to both ovaries. No hyperemia. CUL-DE-SAC: Free fluid: None. IMPRESSION: 1. Normal-appearing uterus with endometrial stripe within normal limits. 2. The ovaries are suboptimally evaluated due to lack of transvaginal imaging. Enlarged right ovary. Simple appearing cyst of left ovary measuring 4.2 cm. Gynecology consult recommended. DATA REPOSITORY:
== END 2024-06-30 01:55 ==
LOC: DI 01:35
PROVIDERS: PCP Family Medicine; Visit Provider Family Medicine
DX: N83.202 Unspecified ovarian cyst, left side (principal)
CPT/HCPCS: 76856

== ENCOUNTER 2024-07-01 03:15 | Outpatient (CLI) | payer MEDICARE, SELFPAY ==
[2024-07-04 14:55] LABS: Renin Activity, Plasma 30 ng/mL/h
== END 2024-07-01 03:16 | disposition home or self-care (01) ==
LOC: LBO 03:15
PROVIDERS: PCP Family Medicine; Visit Provider Family Medicine
DX: I10 Essential (primary) hypertension (principal)
CPT/HCPCS: 36415; 82088; 84244

== ENCOUNTER → 2024-07-21 14:58 | Outpatient (BNVA) | payer MEDICARE, SELFPAY | PROVIDERS: PCP Family Medicine; Referring Provider Family Medicine; Visit Provider Physician Assistant Surgical | DX: J43.9 Emphysema, unspecified (principal); J67.9 Hypersensitivity pneumonitis due to unspecified organic dust; K21.9 Gastro-esophageal reflux disease without esophagitis; F17.200 Nicotine dependence, unspecified, uncomplicated | CPT/HCPCS: 99214 ==

== ENCOUNTER 2024-09-30 04:30 | Outpatient (CLI) | payer MEDICARE, SELFPAY ==
[2024-09-30 13:46] LABS: Calculated LDL 107 mg/dL (<100); Cholesterol 206 mg/dL (<200); HDL Cholesterol 51 mg/dL (40-60); Triglyceride 243 mg/dL (<150)
== END 2024-09-30 04:31 | disposition home or self-care (01) ==
LOC: LOS 04:30
PROVIDERS: PCP Family Medicine; Visit Provider Family Medicine
DX: E78.5 Hyperlipidemia, unspecified (principal)
CPT/HCPCS: 36415; 80061

== ENCOUNTER → 2024-10-22 10:07 | Outpatient (BNVA) | payer MEDICARE, SELFPAY | PROVIDERS: PCP Family Medicine; Referring Provider Family Medicine; Visit Provider Physician Assistant Surgical | DX: J43.9 Emphysema, unspecified (principal); J67.9 Hypersensitivity pneumonitis due to unspecified organic dust; K21.9 Gastro-esophageal reflux disease without esophagitis; F17.200 Nicotine dependence, unspecified, uncomplicated; I10 Essential (primary) hypertension | CPT/HCPCS: 99214 ==

== ENCOUNTER 2024-10-27 01:30 | Outpatient (CLI) | payer MEDICARE, SELFPAY ==
--- NOTE | 2024-10-27 07:00 | DI.US_ITS ---
Exam(s) US PELVIS EXAM: US PELVIS CLINICAL HISTORY: F/U LT OVARIAN CYST,N83.202 TECHNIQUE: Transabdominal imaging was performed using standard protocol. COMPARISON: CT CT ABDOMEN PELVIS CTA from 06/13/2024 US US PELVIS from 06/30/2024 FINDINGS: The patient declined transvaginal imaging. The transabdominal images are somewhat limited due to pa tient body habitus. UTERUS: Anteverted. 5.5 x 1.9 x 1.9 cm Endometrium: Not well seen. Measured at 2 mm Myometrium: Unremarkable. Cervix: Unremarkable. OVARIES: Right: Cyst or mass: None. Left: Cyst or mass: Simple cyst measuring 4.0 x 3.5 x 3.7 cm is measuring smaller when compared with the prior exam although this could be secondary to differences in measurement error. DOPPLER: Color: Symmetric and uniform flow to both ovaries. No hyperemia. CUL-DE-SAC: Free fluid: None. IMPRESSION: 1. Normal-appearing uterus with endometrial stripe within normal limits. 2. Stable or decreased size left ovarian cyst. DATA REPOSITORY:
== END 2024-10-27 01:50 ==
LOC: DI 01:30
PROVIDERS: PCP Family Medicine; Visit Provider Obstetrics & Gynecology
DX: N83.202 Unspecified ovarian cyst, left side (principal)
CPT/HCPCS: 76856

== ENCOUNTER 2024-11-25 03:54 | Outpatient (CLI) | payer MEDICARE, SELFPAY ==
[2024-11-25 12:52] LABS: Potassium 3.5 mmol/L (3.5-5.1)
== END 2024-11-25 03:55 | disposition home or self-care (01) ==
LOC: LOS 03:54
PROVIDERS: PCP Family Medicine; Visit Provider Family Medicine
DX: I10 Essential (primary) hypertension (principal)
CPT/HCPCS: 36415; 84132

== ENCOUNTER 2025-02-10 03:15 | Outpatient (CLI) | payer MEDICARE, SELFPAY ==
--- NOTE | 2025-02-10 06:15 | DI.MAMMO_ITS ---
Exam(s) MAMMO SCREENING EXAM: MAMMO SCREENING CLINICAL HISTORY: screening,Z12.39 TECHNIQUE: Mammograms were interpreted according to the usual protocol including computer analysis with CAD system, tomosynthesis and C-view imaging. COMPARISON: 2014 through 2022 FINDINGS: The breasts are composed of scattered fibroglandular densities, Breast Density category B. No suspicious masses or suspicious microcalcifications are seen. No skin thickening or abnormal axillary lymph nodes are seen. There has been no significant change from prior exams. IMPRESSION: BI-RADS Category 1, Negative mammogram Yearly screening mammography is recommended. Breast Density - Category B - There are scattered areas of fibroglandular density. Breast density Category C or D implies that the patient has dense breast tissue. Dense breast tissue can make it harder to find cancer on a mammogram. Dense breast tissue is also associated with an increased risk of breast cancer. This information about the result of the mammogram report was provided to the patient to raise their awareness. Use this report when you speak with the patient about their risks for breast cancer, which includes their family history. At that time, you may recommend additional screening tests (Ultrasound or MRI) as these tests may add significant information. A negative radiographic report should not delay biopsy if a dominant or clinically suspicious mass is present. Up to ten percent of cancers are not identified on mammography. A negative report may reinforce clinical impression. Adenosis and dense breasts may obscure an underlying neoplasm. False positive reports average 6 to 10%. Patient will receive a letter notifying them of these results.
--- NOTE | 2025-02-10 06:15 | DI.DEXA_ITS ---
Exam(s) XR DEXA BONE DENSITY W/WO LILLY EXAM: XR DEXA BONE DENSITY W/WO LILLY CLINICAL HISTORY: Annual exam,MENOPAUSAL DISORDER, N95.9 TECHNIQUE: Routine DEXA evaluation of the lumbar spine, hip, or forearm. COMPARISON: CR XR DEXA BONE DENSITY W/WO LILLY from 06/09/2020 CR XR LUMBAR SPINE COMPLETE from 04/01/2024 Prior DEXA scan of 06/09/2020. FINDINGS: Performed on a [facility] unit. Lateral scanogram image: No compression fracture evident. Lumbar Spine total T-score: -1.4 which is osteopenia range. Prior reading in May 2020 was -1.8 Hip total T-score:-0.4 which is normal range. Prior reading in 2019 was -0.9. Independent reading at the level of the femoral neck yields T-score of -1.9. This is osteopenia range. Prior reading on 06/09/2020 at the femoral neck level was -1.6 Forearm total T-score: -0.8. The prior reading in May 2020 was -1.0. Both readings are within the normal range IMPRESSION: Bone mineral density measures in the osteopenia range. Fracture risk is moderate. Note: Any spine fracture indicates 5x risk for subsequent spine fracture and 2x risk for subsequent hip fracture. World Health Organization criteria for BMD interpretation classify patients: Normal...... T- Score at or above -1.0 Osteopenic... T- Score between -1.0 and -2.5 Osteoporosis... T-Score at or below -2.5
== END 2025-02-10 03:35 ==
PROVIDERS: PCP Family Medicine; Visit Provider Family Medicine
DX: Z12.31 Encounter for screening mammogram for malignant neoplasm of breast (principal); N95.9 Unspecified menopausal and perimenopausal disorder; R92.323 Mammographic fibroglandular density, bilateral breasts
CPT/HCPCS: 77063; 77067; 77080

== ENCOUNTER 2025-04-03 00:27 | Outpatient (CLI) | payer MEDICARE, SELFPAY ==
[2025-04-03 13:11] LABS: ALT 26 U/L (14-59); AST 30 U/L (15-37); Albumin 3.9 g/dL (3.4-5.0); Alkaline Phosphatase 117 U/L (46-116); Anion Gap 11.7 mmol/L (3-11); BUN 9 mg/dL (7-18); Bilirubin, Total 0.4 mg/dL (0.2-1.0); CO2 25.3 mmol/L (21.0-32.0); Calcium 9.5 mg/dL (8.5-10.1); Calculated LDL 76 mg/dL (<100); Chloride 98 mmol/L (98-107); Cholesterol 161 mg/dL (<200); Estimated GFR 77.75 (mL/min/1.73m2); Glucose 105 mg/dL (74-106); HDL Cholesterol 48 mg/dL (>or=50); Potassium 3.8 mmol/L (3.5-5.1); Sodium 135 mmol/L (136-145); Total Protein 7.9 g/dL (6.4-8.2); Triglyceride 187 mg/dL (<150)
[2025-04-03 13:23] LABS: Creatine Kinase 217 U/L (26-192)
== END 2025-04-03 00:28 | disposition home or self-care (01) ==
LOC: LOS 00:27
PROVIDERS: PCP Family Medicine; Visit Provider Student in an Organized Health Care Education/Training Program
DX: E78.5 Hyperlipidemia, unspecified (principal)
CPT/HCPCS: 36415; 80053; 80061; 82550

== ENCOUNTER → 2025-04-28 10:40 | Outpatient (BNVA) | payer MEDICARE, SELFPAY | PROVIDERS: PCP Family Medicine; Referring Provider Family Medicine; Visit Provider Internal Medicine Pulmonary Disease | DX: J44.9 Chronic obstructive pulmonary disease, unspecified (principal); Z72.0 Tobacco use | CPT/HCPCS: 99214; G0296 ==

== ENCOUNTER 2025-05-05 00:53 | Outpatient (CLI) | payer MEDICARE, SELFPAY ==
--- NOTE | 2025-05-05 06:15 | DI.US_ITS ---
Exam(s) US PELVIS EXAM: US PELVIS CLINICAL HISTORY: f/u left OVARIAN CYST,N83.202 TECHNIQUE: Transabdominal imaging was performed using standard protocol. The patient declined transvaginal imaging. COMPARISON: US PELVIS TRANSVAG from 09/09/[address] ABDOMEN PELVIS CTA from 06/13/2024 US US PELVIS from 06/30/2024 US US PELVIS from 10/27/2024 FINDINGS: Exam is limited by lack of transvaginal imaging, patient body habitus and suboptimal urinary bladder distention. UTERUS: Anteverted. 5.4 x 2.1 x 2.9 cm Endometrium: Not visualized. Myometrium: Unremarkable. Cervix: Unremarkable. OVARIES: Right: 2.0 x 1.0 x 2.4 cm. Cyst or mass: None. Left: Cyst or mass: 3.0 x 2.2 x 3.9 cm. Cyst measured today at 2.6 x 2.9 x 2.9 cm, decreased in size when compared with the previous exams. DOPPLER: Color: Symmetric and uniform flow to both ovaries. No hyperemia. CUL-DE-SAC: Free fluid: None. IMPRESSION: 1. Normal size uterus. Endometrial stripe not visualized. 2. Decrease in size of previously noted left ovarian cyst, now measuring 2.9 cm in maximal dimension. DATA REPOSITORY:
== END 2025-05-05 01:13 ==
LOC: DI 00:53
PROVIDERS: PCP Family Medicine; Visit Provider Obstetrics & Gynecology
DX: N83.202 Unspecified ovarian cyst, left side (principal)
CPT/HCPCS: 76856

== ENCOUNTER 2025-05-08 03:55 | Outpatient (CLI) | payer MEDICARE, SELFPAY ==
--- NOTE | 2025-05-08 06:30 | DI.CTLCSR_ITS ---
Exam(s) CT CHEST LUNG CANCER SCREEN EXAM: CT CHEST LUNG CANCER SCREEN CLINICAL HISTORY: Screening for lung cancer,cigarette smoker, f17.210 TECHNIQUE: Imaging Protocol: Axial computed tomography images with coronal and sagittal reformatted images were created and reviewed. Low dose screening protocol. COMPARISON: CT CT CHEST WO from 02/07/2024 FINDINGS: Tracheobronchial tree: No bronchiectasis or mucus plugging. Mediastinum and [place]: No dominant adenopathy or fluid collection. Pulmonary parenchyma: No consolidation or dominant measurable mass. Moderate emphysematous changes and interstitial thickening again noted. Mild apical scarring. Lung Nodules: 2 stable perifissural nodules in the right minor fissure. Stable 4 millimeter nodule medial right upper lobe. Pleura: No effusion. No pneumothorax. Heart: The heart is not dilated. No coronary artery calcifications are seen. No pericardial effusion. Aorta: Thoracic aorta non-dilated. Upper abdomen: Unremarkable. Bones: Unremarkable for age. Soft Tissues: Unremarkable. IMPRESSION: No suspicious pulmonary nodules. Lung RADS Cat 2 - Benign Appearance / Behavior: Nodules with a very low likelihood of becoming a clinically active cancer due to size or lack of growth Lung-RADS 1.0 CATEGORIES: Category 0 - Prior chest CT exam(s) being located for comparison. Category 1 - Annual screening in 12 months. No nodules or definitely benign nodules. Category 2 - Annual screening in 12 months. Benign appearance. Nodules with low likelihood of becoming active cancer. Category 3 - 6-month follow-up. Probably benign. Short-term follow-up suggested. Nodules with low likelihood of becoming active cancer. Category 4A - 3-month follow-up and CT/PET if >8 mm in size. Suspicious finding. Findings which require additional testing. Category 4B - Findings which require additional testing and tissue sampling. Category 4X - Category 3 or 4 nodules with additional features or imaging findings that increases the suspicion of malignancy. Modifier S- Potentially clinically significant findings (non lung cancer) RADIATION DOSE DELIVERED: 39.98mGy.cm Total DLP DATA REPOSITORY: All CT scans at this facility are submitted to the National Radiology Data Registry (NRDR) Dose Index Registry (DIR) with the [employer] (ACR). RADIATION OPTIMIZATION: All CT scans at this facility use at least one of these dose optimization techniques: automated exposure control; mA and/or kV adjustment per patient size (includes targeted exams where dose is matched to clinical indication); or iterative reconstruction.
== END 2025-05-08 04:15 ==
PROVIDERS: PCP Family Medicine; Visit Provider Internal Medicine Pulmonary Disease
DX: Z12.2 Encounter for screening for malignant neoplasm of respiratory organs (principal); F17.210 Nicotine dependence, cigarettes, uncomplicated
CPT/HCPCS: 71271

== ENCOUNTER → 2025-07-27 13:19 | Outpatient (BNVA) | payer MEDICARE, SELFPAY | PROVIDERS: PCP Family Medicine; Referring Provider Family Medicine; Visit Provider Internal Medicine Pulmonary Disease | DX: J44.89 Other specified chronic obstructive pulmonary disease (principal); K21.9 Gastro-esophageal reflux disease without esophagitis; Z23 Encounter for immunization; F17.210 Nicotine dependence, cigarettes, uncomplicated | CPT/HCPCS: 99214; 99406 ==